=== PATIENT | male | born 1930 | race Caucasian/White ===

== ENCOUNTER 2016-10-04 06:46 | Day surgery (SDC) | payer MEDICARE, OTHER ==
[2016-10-04] VITALS (7 sets, daily range): BP systolic 145–174; BP diastolic 68–75; PULSE 50–53; RESP 1–17; O2SAT 97–100
[~2016-10-04] VITALS: Ht 165.1 cm; Wt 78.8 kg
[~2016-10-04 06:46] MED LIST: ATOR80TA PO; LAMO100T2 PO; Lactated Ringer's 1,000 ML IV ONE
[2016-10-04] MEDS ORDERED: fentaNYL-PF 50 mCg/mL 2 mL Inj ONE (06:47)
[2016-10-04] MEDS ORDERED: EPHEDrine/NS 5 mg/mL 5 mL Syringe ONE (06:47)
[2016-10-04] MEDS ORDERED: Ondansetron 2 mg/mL 2 mL Inj ONE (06:47)
[2016-10-04] MEDS ORDERED: Phenylephrine/NS-PF 100 mCg/mL 5 mL Syringe IVPUSH ONE (06:47)
[2016-10-04] MEDS ORDERED: Dexamethasone 4 mg/mL Inj ONE (06:47)
[2016-10-04] MEDS ORDERED: Propofol 10,000 mCg/mL 20 mL Inj ONE (06:47)
[2016-10-04] MEDS ORDERED: Glycopyrrolate 0.2 mg/mL 5 mL Inj ONE (06:47)
[2016-10-04] MEDS ORDERED: Lidocaine PF 1% 30 mL Inj ONE (06:47)
[2016-10-04] MEDS ORDERED: levoFLOXacin 500 mg/100 mL D5W Premix IV ONE (07:32)
--- NOTE | 2016-10-04 07:48 | PCM.HPANE ---
Patient Data Surgeon Admitting Provider: Attending Provider:Abelino Dang MD Primary Care Physician:Albert Flores MD Other Provider:[facility] Reason for Visit Right Kidney Stone Ht/WT & BMI Height (Feet): 5 Height (Inches): 6 Weight (Kilograms): 79.37 Body Mass Index 28.00 Allergies Coded Allergies: No Known Allergies (Unverified , 10/02/16) Past Anesthesia History Anesthesia History: Denies:: Abnormal Airway, Anesthesia Reactions, Difficult Intubation, Fam Anesthesia Reaction Diabetes History Hx Diabetes?: No MRSA MRSA: No Medications Blood Thinner: Plavix Hypertension Medication: Yes Home Meds Incl Beta Kaylah: No Reported Medications Lamotrigine 100 Mg [id number] Mg PO DAILY Ref 0 10/02/16 Atorvastatin (Lipitor)80 Mg [id number] Mg PO DAILY Ref 0 10/02/16 Last Time Dose Received pt is off plavix x 1 week took lamictal today amlodipine taken last night lisinopril held History HEENT History: Positive for:: Cataracts (bilateral) Hearing Problem Denies:: Abnormal Airway Difficult Intubation Dysphagia Glaucoma Sinus Problem TMJ Cardiovascular History: Positive for:: 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 ) Hypertension Denies:: AICD Atrial Fibrillation Chest Pain Edema Heart Murmur Irregular Heartbeat Pacemaker Peripheral Vascular Rheumatic Fever Thrombophlebitis Valvular Heart Disease Other History/Comments Greater than 4 mets; No recent CP; Hx of Respiratory Problem?: No Respiratory History: Denies:: Asthma COPD Emphysema Oxygen Administration Pneumonia Tuberculosis Use of C-PAP Machine Hx Neurologic Problems?: Yes Neurological History: Positive for:: Seizures (takes lamictal / "absence" seizures not for many years ) TIA (No known etiology; w/u was negative) Denies:: CVA Headaches Multiple Sclerosis Parkinson's Disease Hx of GI Problems?: No Gastrointestinal History: Denies:: Cirrhosis Diverticulitis Gall Bladder Disease Gastroesphageal Reflux Gastrointestinal Bleeding Heartburn Hepatitis Hiatal Hernia Liver Disease Rectal Bleeding Hx of Problems?: Yes Genitourinary History: Positive for:: Kidney Stones (right kidney stones current problem) Denies:: Urinary Tract Infection Male Hx: Positive for:: Prostate Problems (prostatectomy/ seeds 2002) Skin History: Denies:: History Skin Disorders? Pressure Ulcers Hx Musculoskeletal Problems?: Yes Musculoskeletal History: Positive for:: Musculoskeletal Trauma (ORIF ankle hx ) Denies:: Back Injury Fibromyalgia Joint Replacement Osteoarthritis Hx of Psycho/Social Problems?: No Psycho Social History: Denies:: Anxiety Hx Depression Hx Surgeries?: Yes (CABG, prostatectomy, cataracts, ORIF ankle) Hx Any Other Health Problems?: Yes Other History: Positive for:: Cancer (prostate , basal skin cancers) Denies:: Thyroid Disease History Blood Transfusions: Positive for:: Accept Blood Products? Denies:: Blood Transfusions Hx Diabetes: No Hx Alcohol Use: YesAlcoholic Drinks Per Day: one drink eveningHx Substance Use : NoHave You Smoked inLast 12 mo: No Stop/Bang S-Snoring: Do You Snore Loudly: Yes T-Tired: feel tired, fatigued: No O-Obsered: Observed not breath: No P-Blood Pressure: treated: Yes B- Body Mass Index > 35 kg/m2: No A- Age over 50: Yes N- Neck Large Circumference: No G- Gender Male: Yes CORDELIA Total Score: 4 Risk Assessment Category Category 1A: Patient has history of documented sleep apnea, and HAS NOT received any narcotic, sedative or anesthesia administration during this stay. Category 1B: Patient has history of documented sleep apnea, and HAS received any narcotic , sedative or anesthesia administration during this stay Category 2: Patient has SUSPECTED Obstructive Sleep Apnea, and HAS received any narcotic , sedative or anesthesia administration during this stay. Category 3: Patient has SUSPECTED Obstructive Sleep Apnea and HAS NOT received narcotic, sedative or anesthesia administration during this stay. Category 4: Outpatient in Procedural Areas with known sleep apnea or who screen positive for High Risk via the STOP/BANG questionnaire. Exam Exam General Appearance: Alert, Oriented X3 HEENT/AIRWAY: MP 2, Neck Movement (FROM) Lungs: Clear to Auscultation, Clear to Percussion Heart: Exam Unremarkable, Regular Rate/Rhythm Plan Impression Patient chart reviewed, patient interviewed and anesthestic plan with risks, benefits, and alternatives discussed, and informed consent obtained. ASA Physical Status: ASA2 Mod Systemic Disease Anesthetic Plan: GA Bene/Risks/Altern/Consents: Yes HP Complete Prior to Induction: Yes Eitan Noland MD Oct 04, 2016 07:43
[2016-10-04] MEDS ORDERED: levoFLOXacin Inj 500 MG in IV Premix 1 EACH IV ONE (07:50)
[2016-10-04] MEDS ORDERED: levoFLOXacin 500 mg Tablet PO ONE (07:50)
[2016-10-04] MEDS ORDERED: Lactated Ringer's 1,000 ML IV ONE (08:00)
[2016-10-04] MEDS ORDERED: Lactated Ringer's 1,000 ML IV SCH (08:26)
[2016-10-04] MEDS ORDERED: Lactated Ringer's 500 ML IV PRN (08:26)
[2016-10-04] MEDS ORDERED: MetoCLOpramide 5 mg/mL 2 mL Inj IVPUSH PRN (08:30)
[2016-10-04] MEDS ORDERED: Phenylephrine 10,000 mCg/mL Inj IVPUSH PRN (08:30)
[2016-10-04] MEDS ORDERED: HYDROmorphone 1 mg/mL Inj IVPUSH PRN (08:30)
[2016-10-04] MEDS ORDERED: Labetalol 5 mg/mL 4 mL Inj IV PRN (08:30)
[2016-10-04] MEDS ORDERED: fentaNYL-PF 50 mCg/mL 2 mL Inj IVPUSH PRN (08:30)
[2016-10-04] MEDS ORDERED: Ondansetron 2 mg/mL 2 mL Inj IVPUSH PRN (08:30)
[2016-10-04] MEDS ORDERED: EPHEDrine Sulfate 50 mg/mL Inj IVPUSH PRN (08:30)
[2016-10-04] MEDS ORDERED: Atropine 0.4 mg/mL Inj IVPUSH PRN (08:30)
[2016-10-04] MEDS ORDERED: Belladonna Alk-Opium 60 mg Rectal Suppository RECTAL ONE ×2 (08:53→08:56)
--- NOTE | 2016-10-04 10:41 | PCM.SURGPO ---
Immediate Operative Note Date of Surgery: Oct 04, 2016 Pre Operative Diagnosis R renal calculi Post Operative Diagnosis R renal calculi Procedure Extracorporeal shock wave lithotripsy of R renal calculi, cystoscopy, and R ureteral stent placement Surgeon and Miller First Surgeon: Abelino Dang MD Assistants: None Findings Pre-op KUB showed R renal calculi x 5 (R renal pelvis x 4 (93p24ii, 44b04ia, 10x8mm, 10x6mm) and R lower pole x 1 (9x7mm)). Cystoscopy revealed no bladder tumors, lesions, or calculi. R ureteral stent was placed. ESWL of R renal calculi was performed at a rate of 60, up to a maximum energy level of 4, with a total of 2500 shocks administered. Of note, a 2 minute pause was performed after the initial 200 shocks to aid in calculi fragmentation. Of note, PVC's were noted after the initial approx. 800 shocks, and cardiac gating was started , with subsequent resolution of PVC's. Evidence for good fragmentation of calculi was seen on post-ESWL fluoroscopy. Complications There were no periprocedural complications identified. Surgical Specimen Removed: No Specimen sent to Pathology: No Anesthetic Administered: GA Grafts, Implants: Other (26cm x 5F R ureteral JJ stent (no string)) Output, Estimated Blood Loss: <5 Blood Admin during surgery: No Additional information Patient to be discharged home when stable, to return to see Dr. Price in 2 weeks for post-op visit and possible cystoscopy and stent removal, with a KUB prior to appt. Abelino Dang MD Oct 04, 2016 10:41
--- NOTE | 2016-10-04 10:54 | PCM.DISURG ---
Surgical Discharge Instruction Date of Service Oct 04, 2016 Dates of Hospitalization Date of Hospital Admission Oct 04, 2016 Providers Admitting Physician: Abelino Dang MD Primary Care Physician: Albert Flores MD Attending Physician: Abelino Dang MD Discharge Diagnosis Discharge Diagnosis R renal calculi Post Operative diagnosis R renal calculi Diet Discharge Diet: No restrictions, Other (Drink at least 10-12 8oz. glasses (3 liters) of fluids per day) Activity Discharge Activity-General: No driving while taking narcotic, Other (No strenuous exercise/activity or moderate or heavy lifting (> 10 lbs.) for 1 week) Dressing and Incisional Care Hygiene: May shower Additional Instructions Discharge Instructions Strain all urine Follow Up Plan Follow-up Provider (F9): Sravanthi Price MD Follow-up appointment: Weeks (2 weeks for post-op visit and possible cystoscopy and stent removal, with a KUB prior to appt.) Call your provider for: Fever, Chills, Vomiting, Other (Pain uncontrolled by pain medications) Abelino Dang MD Oct 04, 2016 10:54
[2016-10-04] MEDS ORDERED: oxyCODONE-Acetamin 5-325 mg Tablet PO PRN (10:55)
--- NOTE | 2016-10-04 14:05 | DRSVH ---
PROCEDURE: X-RAY KUB ([id number]) INDICATIONS: RIGHT KIDNEY STONE TECHNIQUE: One view of the abdomen acquired. COMPARISON: [facility], , KUB XRAY (1 VIEW ABDOMEN), 09/18/2016, 10:00. FINDINGS: Surgical changes and devices: Prostate seed implants noted. Bowel: Bowel gas pattern is normal. Soft tissues: Roughly 5 calcification projected over the midpole the right kidney largest measuring 1 .3 cm. Several pelvic calcifications likely pelvic phleboliths. Bones: No suspicious bony lesions. IMPRESSION: Roughly 5 calcifications projected over the right kidney. Dictated by: Washington Menjivar [facility] Interpreted: Sravanthi Maldonado MD on 10/04/2016 at 14:04 Transcribed by: KLAUS on 10/04/2016 at 14:05 Approved by: Sravanthi Maldonado MD, PhD on 10/04/2016 at 17:05
--- NOTE | 2016-10-05 12:03 | OP ---
[address] [address] OPERATIVE REPORT PATIENT: SHANI CAMP : 1930 MR#: [id number] ADMIT: 10/04/2016 JOB ID: [id number] DATE OF SURGERY: 10/04/2016 PREOPERATIVE DIAGNOSIS(ES): Right renal calculi. POSTOPERATIVE DIAGNOSIS(ES): Right renal calculi. PROCEDURE: 1. Extracorporeal shockwave lithotripsy of right renal calculi. 2. Cystoscopy. 3. Right ureteral stent placement. SURGEON: Abelino Dang MD. JOURNEYMAN MEAT CUTTER: None. ANESTHESIA: General. ESTIMATED BLOOD LOSS: Less than 5 mL. SPECIMENS: None. DRAINS: A 26 cm x 5-Bhutanese right ureteral double-J stent. COMPLICATIONS: None. CONDITION: Stable. FINDINGS: Preop KUB showed right renal calculi x5 (right renal pelvis x4 (13 x 13 mm, 12 x 12 mm, 10 x 8 mm, 10 x 6 mm) and right lower pole x1 (9 x 7 mm)). Cystoscopy revealed no bladder tumors, lesions, or calculi. A right ureteral stent was placed. ESWL of right renal calculi was performed at a rate of 60 up to a maximum energy level of 4, with a total of 2500 shocks administered. Of note, a 2 minute pause was performed after the initial 200 shocks to aid in calculi fragmentation. Of note, PVCs were noted after the initial approximately 800 shocks, and cardiac gating was started, with subsequent resolution of PVCs. Evidence for good fragmentation of calculi was seen on post ESWL fluoroscopy. INDICATIONS: The patient is an 86-year-old male with right renal calculi, followed by Dr. Sravanthi Price. The patient now presents for extracorporeal shockwave lithotripsy of right renal calculi, cystoscopy and right ureteral stent placement. DESCRIPTION OF PROCEDURE: The patient was brought to the operating room and placed supine on the operating room table. The patient was given Levaquin IV antibiotics. Sequential compression device boots were placed. General anesthesia was administered. The patient was brought down into the dorsal lithotomy position. The patient was prepped and draped in a standard surgical fashion. A 22-Bhutanese rigid cystoscope was placed into the distal urethra without difficulty. The distal urethra was seen to be normal. Cystoscopy revealed normal distal urethra, no bladder tumors, lesions, or calculi, and bilateral ureteral orifices in normal position. An angle tip UltraTrack guidewire was passed into the right ureteral orifice and passed up the right ureter and into the right renal pelvis. A 5-Bhutanese open-ended catheter was passed over the guidewire, up the right ureter and into the right renal pelvis. The guidewire was removed. A small amount of contrast was instilled into the right renal collecting system through the open-ended catheter to illuminate the right renal collecting system to aid in stent placement. The guidewire was advanced through the open-ended catheter up the right ureter into the right renal pelvis. Open-ended catheter was removed. A 26 cm x 5-Bhutanese ureteral double-J stent, with the stent string removed prior to stent placement, was passed over the guidewire through the cystoscope and passed up the right ureter and placed so that the proximal pigtail was located in the right renal pelvis and the distal pigtail was located in the bladder. The guidewire was removed. Correct positioning of the stent was confirmed both fluoroscopically and under direct visualization using cystoscope. Good efflux of contrast could be seen draining from the distal end of the stent into the bladder, further confirming correct stent positioning. Thus, the right ureteral stent was placed without difficulty. The bladder was drained via the cystoscope. Cystoscope was removed from the patient. Skin was cleaned and dried. The patient was placed in supine position. Extracorporeal shockwave lithotripsy of right renal calculi was performed at a rate of 60 up to a maximum energy level of 4, with a total of 2500 shocks administered. Of note, a 2 minute pause was performed after the initial 200 shocks to aid in calculi fragmentation. Of note, PVCs were noted after the initial approximately 800 shocks and cardiac gating was started, with subsequent resolution of PVCs. Evidence for good fragmentation of calculi was seen on post ESWL fluoroscopy. Of note, ESWL was able to be performed for all of the renal calculi including the lower pole calculus. The patient was awakened from general anesthesia and transferred to the recovery room in stable condition. The patient tolerated the procedure well. Plan is for the patient to be discharged home when stable and to return to see Dr. Price in two weeks for postoperative visit and possible cystoscopy and stent removal, with a KUB prior to the appointment. TAYA
--- NOTE | 2016-10-05 13:31 | PCM.ANEP1 ---
Post Anesthesia Phase 1 PACU Phase 1 Assessment Date of Service: Oct 04, 2016 Anesthetic Administered: GA Level of Alertness: Awake, talking GUTIERREZ's with Equal Strength: Yes Pain: No Nausea or Vomiting: No Oxygen Delivery: Simple Mask Lungs: Clear to Auscultation, Clear to Percussion Eitan Noland MD Oct 05, 2016 13:31
--- NOTE | 2016-10-05 13:31 | PCM.ANEP2 ---
Post Anesthesia Evaluation ASA/CMS Post Anesthesia VS in Patient's Normal Range?: Yes Resp Stable; Airway Patent?: Yes CV Function & Hydration Stable: Yes Mental Status Recovered?: Yes Pain control Satisfactory?: Yes N/V Control Satisfactory?: Yes Eitan Noland MD Oct 05, 2016 13:31
== END 2016-10-04 23:59 | disposition home or self-care (01) ==
LOC: SAS 06:46
PROVIDERS: ATTEND Urology
DX: N20.0 Calculus of kidney (principal); I25.10 Atherosclerotic heart disease of native coronary artery without angina pectoris; I10 Essential (primary) hypertension; Z95.1 Presence of aortocoronary bypass graft; Z86.73 Personal history of transient ischemic attack (TIA), and cerebral infarction without residual deficits; Z85.46 Personal history of malignant neoplasm of prostate; Z85.828 Personal history of other malignant neoplasm of skin; Z79.02 Long term (current) use of antithrombotics/antiplatelets
CPT/HCPCS: 50590; 52332; 74000; C2617; J1100; J2370; J2405; J3010; J7120